=== PATIENT | female | born 1955 | race Caucasian/White ===

== ENCOUNTER 2018-05-26 09:00 | Outpatient (CLI) | payer OTHER ==
--- NOTE | 2018-05-26 17:03 | CT ---
NONCONTRAST LOW DOSE CT PULMONARY LUNG SCAN: 05/26/18 HISTORY: Tobacco abuse. Smoking history of 30+ years. COMPARISON: None available. FINDINGS: There is small pulmonary nodules measuring 4 mm or less at each lung base. There is a 4 mm pulmonary nodule lateral right lung base (image 42, series 3) with 3 mm pulmonary nodule anterior aspect right lower lobe (image 39, series 3) and a 4 mm pulmonary nodule posterolateral left lung base (image 48, series 3). No definite additional pulmonary nodule or mass is seen in the lungs bilaterally. There ar e mild peripheral blebs and emphysematous changes within the visualized upper lobes. No pleural effus ion is seen. Lack of intravenous contrast limits evaluation of the mediastinal structures and vasculature, but no definite enlarged lymph nodes are seen. Vascular calcifications are seen in the thoracic aorta. A subcentimeter hypodense is seen in the medial aspect of the right hepatic lobe which cannot be furt her characterized on this exam. Vascular calcifications are seen in the abdominal aorta. Increased density foci are seen within the g allbladder lumen which may represent gallbladder calculi and/or sludge. However, the gallbladder is i ncompletely imaged or evaluated on this exam. There is a sclerotic density seen within the T12 vertebral body demonstrating characteristics most co mpatible with small bone island. IMPRESSION: 1. LUNG RADS category 2, bibasilar subcentimeter pulmonary nodules. Continued annual screening w ith low dose CT scan in 12 months is recommended. 2. LUNG RADS category S, irregular appearance of the gallbladder with increased density within t he gallbladder lumen. This is incompletely evaluated or imaged on this exam. A right upper quadrant u ltrasound exam is recommended for further evaluation. POS: [facility]
== END 2018-05-26 09:01 | disposition home or self-care (01) ==
LOC: CT 09:00
PROVIDERS: ATTEND Urology
DX: F17.200 Nicotine dependence, unspecified, uncomplicated (principal); R91.8 Other nonspecific abnormal finding of lung field
CPT/HCPCS: G0297

== ENCOUNTER 2018-05-26 13:04 | Outpatient (CLI) | payer OTHER ==
--- NOTE | 2018-05-26 15:14 | BD ---
DEXA BONE SCAN: HISTORY: Age-related osteoporosis. COMPARISON: Comparison is made to previous exam from 12/29/2016. FINDINGS: DEXA bone scan was performed using a Hologic bone mineral density unit. Lumbar Spine: BMD (g/cm2) L1 0.81 T-Score: -1.6 Z-Score: -0.3 L2 0.85 T-Score: -1.6 Z-Score: -0.1 L3 0.90 T-Score: -1.7 Z-Score: -0.1 L4 0.82 T-Score: -2.2 Z-Score: -0.5 L1-L4 0.85 T-Score: -1.8 Z-Score: -0.3 When compared to previous bone scan from 2017. The bone mineral density has slightly improved having increased from 0.84 now measuring 0.85. Findings compatible with osteopenia. Left Hip: Femoral Neck: 0.62 T-Score: -2.0 Z-Score: -0.7 Total Femur: 0.83 T-Score: -0.9 Z-Score: 0.1 Findings compatible with osteopenia. The patient has the following FRAX score: Major osteoporotic fracture risk of 9.6% and hip fracture risk of 2.2%. Impression: Continued osteopenia. Bone mineral density has minimally improved compared to previous exam from 201 7. POS: [facility]
== END 2018-05-26 13:05 | disposition home or self-care (01) ==
LOC: BICMAMMO 13:04
PROVIDERS: ATTEND Internal Medicine
DX: Z12.31 Encounter for screening mammogram for malignant neoplasm of breast (principal); M85.89 Other specified disorders of bone density and structure, multiple sites; Z80.3 Family history of malignant neoplasm of breast
CPT/HCPCS: 77063; 77067; 77080

== ENCOUNTER 2019-11-17 10:04 | Outpatient (CLI) | payer OTHER ==
--- NOTE | 2019-11-17 10:55 | CT ---
CT chest noncontrast low-dose screening HISTORY: Tobacco abuse. COMPARISON: 05/26/2018. FINDINGS: Lungs remain hyperinflated with scattered areas of mild emphysematous bullae and mild paren chymal scarring. A 0.4 cm subpleural nodule at the lateral aspect of the right lower lobe is stable. A 0.3 cm nodule a t the left posterolateral costophrenic angle immediately under the pleural surface is also unchanged. Additional tiny subpleural nodules, none larger than 0.2 cm diameter, at the right posterior lung bas e in the anterolateral aspect of the left upper lobe are stable. No pleural fluid or pneumothorax. Lack of contrast limits evaluation of the soft tissues. Mild arterial calcification. No evidence of m ediastinal adenopathy. IMPRESSION : Tiny bilateral nodules are stable. Lung RADS category 2. Benign findings. Suggest routine follow-up. Emphysema. Atherosclerosis.
--- NOTE | 2019-11-17 11:03 | BD ---
EXAM: DEXA bone density examination HISTORY: 64-year-old postmenopausal female for screening COMPARISON: DEXA scan 2019 FINDINGS: L1--bone mineral density 0.805 g/sq cm; T score -1.7 L2--bone mineral density 0.829 g/sq cm; T score -1.8 L3--bone mineral density 0.853 g/sq cm; T score -2.1 L4--bone mineral density 0.777 g/sq cm; T score -2.6 Total L1-L4--bone mineral density 0.816 g/sq cm; T score -2.1 Change from comparison exam: -3.8%, statistically significant. Left femoral neck--bone mineral density0.593; T score -2.3 Total proximal left femur--bone mineral density 0.810; T score -1.1 Change from comparison exam: -2%, not statistically significant. WHO classification: Osteopenia. 10 year fracture risk Major osteoporotic fracture: 11% Hip fracture: 3% IMPRESSION: Osteopenia with fracture risk as above.
--- NOTE | 2019-11-17 11:57 | MMO ---
Bilateral MAMMO Bilat Screen [facility]. CLINICAL HISTORY: Patient is 64 years old and is seen for screening. The patient has no personal history of cancer. VIEWS: The views performed were: bilateral craniocaudal with tomosynthesis and bilateral mediolateral oblique with tomosynthesis. FILMS COMPARED: The present examination has been compared to prior imaging studies performed at [facility] on 12/24/2015, 12/30/2015, 12/29/2016 and 05/26/2018. This study has been interpreted with the assistance of computer-aided detection. MAMMOGRAM FINDINGS: The breasts are heterogeneously dense, which could obscure a lesion on mammography. There are stable benign appearing calcifications seen in both breasts. There are no suspicious masses, suspicious calcifications, or new areas of architectural distortion. IMPRESSION: THERE IS NO MAMMOGRAPHIC EVIDENCE OF MALIGNANCY. A ROUTINE FOLLOW-UP MAMMOGRAM IN 1 YEAR IS RECOMMENDED. THE RESULTS OF THIS EXAM WERE SENT TO THE PATIENT. ACR BI-RADS Category 2 - Benign finding MAMMOGRAPHY NOTE: 1. A negative mammogram report should not delay a biopsy if a dominant of clinically suspicious mass is present. 2. Approximately 10% to 15% of breast cancers are not detected by mammography. 3. Adenosis and dense breasts may obscure an underlying neoplasm. Reported by: HENRRY GUARDADO MD Electonically Signed: [id number]
== END 2019-11-17 10:05 | disposition home or self-care (01) ==
LOC: BICCT 10:04
PROVIDERS: ATTEND Internal Medicine Hematology & Oncology
DX: Z12.31 Encounter for screening mammogram for malignant neoplasm of breast (principal); Z13.820 Encounter for screening for osteoporosis; Z12.2 Encounter for screening for malignant neoplasm of respiratory organs; F17.210 Nicotine dependence, cigarettes, uncomplicated; Z78.0 Asymptomatic menopausal state; R91.8 Other nonspecific abnormal finding of lung field; J43.9 Emphysema, unspecified; I70.90 Unspecified atherosclerosis; M85.80 Other specified disorders of bone density and structure, unspecified site
CPT/HCPCS: 77063; 77067; 77080; G0297

== ENCOUNTER 2020-11-22 08:34 | Outpatient (CLI) | payer OTHER | END 2020-11-22 08:35 | disposition home or self-care (01) | LOC: BICCT 08:34 | PROVIDERS: ATTEND Internal Medicine Hematology & Oncology | DX: Z12.2 Encounter for screening for malignant neoplasm of respiratory organs (principal); F17.210 Nicotine dependence, cigarettes, uncomplicated; K76.9 Liver disease, unspecified; R91.8 Other nonspecific abnormal finding of lung field; R93.2 Abnormal findings on diagnostic imaging of liver and biliary tract | CPT/HCPCS: 71271 ==

== ENCOUNTER 2021-12-02 12:35 | Outpatient (CLI) | payer OTHER | END 2021-12-02 12:36 | disposition home or self-care (01) | LOC: BICCT 12:35 | PROVIDERS: ATTEND Internal Medicine Hematology & Oncology | DX: Z12.2 Encounter for screening for malignant neoplasm of respiratory organs (principal); F17.210 Nicotine dependence, cigarettes, uncomplicated | CPT/HCPCS: 71271 ==

== ENCOUNTER 2022-04-20 08:12 | Outpatient (CLI) | payer OTHER | END 2022-04-20 08:13 | disposition home or self-care (01) | LOC: BICMAMMO 08:12 | PROVIDERS: ATTEND Internal Medicine | DX: Z12.31 Encounter for screening mammogram for malignant neoplasm of breast (principal); Z13.820 Encounter for screening for osteoporosis; M81.0 Age-related osteoporosis without current pathological fracture; M85.851 Other specified disorders of bone density and structure, right thigh; Z78.0 Asymptomatic menopausal state; Z80.3 Family history of malignant neoplasm of breast | CPT/HCPCS: 77063; 77067; 77080 ==

== ENCOUNTER 2024-01-09 04:51 | Inpatient (IN) | payer OTHER ==
[2024-01-09] MEDS ORDERED: cefTRIAXone (ROCEPHIN) 2 GM VIAL ONE (05:41)
[2024-01-09] MEDS ORDERED: Acetaminophen 500 MG TAB ONE (05:41)
[2024-01-09 06:18] LABS: #Basophils Less than 0.03 10x3/uL (0.0-0.2); #Eosinophils Less than 0.03 10x3/uL (0.0-0.7); %Basophils 0.3 % (0.0-1.0); %Lymphocytes 4.8 % (21.0-51.0); %Monocytes 5.7 % (0.0-10.0); %Neutrophils 88.8 % (42.0-75.0); Hematocrit 33.6 % (36.0-47.0); Hemoglobin 12.1 g/dL (12.0-16.0); Mean Corpuscular Hemoglobin 43.1 pg (27.0-31.0); Mean Corpuscular Volume 119.6 fL (78.0-98.0); Mean Platelet Volume 9.5 fL (7.4-10.4); Platelet Count 207 10x3/uL (130-400); RBC Distribution Width 11.6 % (11.5-14.5); Red Blood Cell (RBC) Count 2.81 mill/uL (4.20-5.40)
[2024-01-09 06:30] LABS: ALT (SGPT) 7 U/L (8-55); AST (SGOT) 12 U/L (5-34); Albumin 3.4 g/dL (3.4-4.8); Alkaline Phosphatase 53 U/L (40-110); Anion Gap 12 mmol/L (10-20); BUN (Urea Nitrogen) 17 mg/dL (9.8-20.1); Bilirubin, Total 0.9 mg/dL (0.2-1.2); Calc. Creatinine Clearance 0 mL/min (70-130); Calcium 9.3 mg/dL (7.8-10.44); Carbon Dioxide 25 mmol/L (23-31); Chloride 102 mmol/L (98-107); Estimated GFR 81; Globulin 2.8 g/dL (2.4-3.5); Glucose 131 mg/dL (80-115); Potassium 3.4 mmol/L (3.5-5.1); Protein, Total 6.2 g/dL (5.8-8.1); Sodium 136 mmol/L (136-145)
[2024-01-09] MEDS ORDERED: EPINEPHrine 4 MG in Dextrose 5% in Water 250 ML IV SCH (08:30)
[2024-01-09] MEDS ORDERED: NOREPINEPHRINE 8 MG/250 ML-D5W 250 ML IVPB SCH ×2 (08:30→08:45)
[2024-01-09 08:56] LABS: Magnesium 1.6 mg/dL (1.6-2.6)
[2024-01-09] MEDS ORDERED: Vancomycin 1 GM in Premix 1 BAG IVPB SCH (09:00)
[2024-01-09 09:02] LABS: Troponin I 0.024 ng/mL (< 0.028)
[2024-01-09 10:32] LABS: Bacteria/HPF 2+ HPF (None Seen); Bilirubin Negative (Negative); Blood, Urine Negative (Negative); CAUTI Indications for Culture Dysuria,urgency,freq; Clarity Clear (Clear); Glucose, Urine (Dipstick) Normal (Negative); Ketone, Urine 10 mg/dL (Negative); Leukocyte 500 Leu/uL (Negative); Nitrite Negative (Negative); Protein, Urine (Dipstick) Negative (Neg-Trace); RBC/HPF 0-3 HPF (0-3); Specific Gravity, Urine 1.004 (1.002-1.036); Squamous Epithelial None Seen HPF (0-3); Urobilinogen Normal mg/dL (Less than 2); WBC/HPF 21-50 HPF (0-3); pH, Urine 5.5 (5.0-9.0)
[2024-01-09 10:34] LABS: Urine Culture Reflex Yes Yes
[2024-01-09] MEDS: Meropenem 1 GM in Sodium Chloride 0.9% 100 ML IVPB SCH ×2 (12:44→16:50)
[2024-01-09] MEDS: Vancomycin (BATCH) 1.25 GM in Premix 1 BAG IVPB SCH (12:45)
[2024-01-09] MEDS: Hydroxyurea 500 MG CAP PO SCH (13:17)
[2024-01-09] MEDS ORDERED: Meropenem 1 GM in Sodium Chloride 0.9% 100 ML IVPB SCH (14:00)
[2024-01-09] MEDS ORDERED: Acetaminophen 325 MG TAB PO PRN (14:13)
[2024-01-09] MEDS ORDERED: Bisacodyl 5 MG TAB PO PRN (14:13)
[2024-01-09] MEDS ORDERED: traMADol HCl 50 MG TAB PO PRN ×2 (14:13)
[2024-01-09] MEDS ORDERED: Ondansetron PF 4 MG/2 ML Vial IVP PRN (14:13)
[2024-01-09] MEDS: Nicotine 21 MG PATCH TD SCH (15:03)
[2024-01-09] MEDS: Enoxaparin 40 MG (0.4 mL) SYRINGE SC SCH (15:03)
[2024-01-09 15:11] VITALS: BMI 21.9
[2024-01-09] MEDS: FLU (Fluad Triv) TS24-25 (65UP)/MF59C/PF 45 MCG/0.5 ML Syringe IM ONE (15:22)
[2024-01-09] MEDS: Vancomycin HCl 750 MG in Sodium Chloride 0.9% 250 ML 250 ML IVPB SCH (22:21)
[2024-01-10] MEDS: Benzonatate 100 MG CAP PO PRN (00:15)
[2024-01-10 04:43] LABS: #Basophils Less than 0.03 10x3/uL (0.0-0.2); #Eosinophils Less than 0.03 10x3/uL (0.0-0.7); %Basophils 0.2 % (0.0-1.0); %Eosinophils 0.1 % (0.0-10.0); %Neutrophils 73.1 % (42.0-75.0); Hematocrit 34.1 % (36.0-47.0); Hemoglobin 11.7 g/dL (12.0-16.0); Mean Corpuscular HGB CONC 34.3 g/dL (32.0-36.0); Mean Corpuscular Hemoglobin 41.9 pg (27.0-31.0); Mean Corpuscular Volume 122.2 fL (78.0-98.0); Mean Platelet Volume 9.8 fL (7.4-10.4); Platelet Count 191 10x3/uL (130-400); RBC Distribution Width 11.9 % (11.5-14.5); Red Blood Cell (RBC) Count 2.79 mill/uL (4.20-5.40)
[2024-01-10 04:57] LABS: Anion Gap 13 mmol/L (10-20); BUN (Urea Nitrogen) 6 mg/dL (9.8-20.1); Calc. Creatinine Clearance 67 mL/min (70-130); Calcium 8.2 mg/dL (7.8-10.44); Carbon Dioxide 20 mmol/L (23-31); Chloride 110 mmol/L (98-107); Estimated GFR 95; Glucose 97 mg/dL (80-115); Potassium 3.1 mmol/L (3.5-5.1); Sodium 140 mmol/L (136-145)
[2024-01-10 05:08] LABS: Vancomycin, Random 16.1 ug/mL (See Comment)
[2024-01-10] MEDS: Potassium Chloride 20 MEQ TAB PO SCH (09:08)
[2024-01-10] MEDS: Enoxaparin 40 MG (0.4 mL) SYRINGE SC SCH (09:08)
[2024-01-10] MEDS: Hydroxyurea 500 MG CAP PO SCH (20:23)
[2024-01-11] MEDS: Loperamide HCl 2 MG CAP PO PRN (04:35)
[2024-01-11 05:44] LABS: #Basophils Less than 0.03 10x3/uL (0.0-0.2); #Eosinophils Less than 0.03 10x3/uL (0.0-0.7); %Basophils 0.2 % (0.0-1.0); %Eosinophils 0.4 % (0.0-10.0); %Lymphocytes 17.7 % (21.0-51.0); %Monocytes 7.5 % (0.0-10.0); %Neutrophils 73.8 % (42.0-75.0); Hematocrit 30.1 % (36.0-47.0); Hemoglobin 10.4 g/dL (12.0-16.0); Mean Corpuscular HGB CONC 34.6 g/dL (32.0-36.0); Mean Corpuscular Hemoglobin 42.3 pg (27.0-31.0); Mean Corpuscular Volume 122.4 fL (78.0-98.0); Mean Platelet Volume 9.8 fL (7.4-10.4); Platelet Count 152 10x3/uL (130-400); RBC Distribution Width 11.9 % (11.5-14.5); Red Blood Cell (RBC) Count 2.46 mill/uL (4.20-5.40)
[2024-01-11 05:46] LABS: BUN (Urea Nitrogen) 4 mg/dL (9.8-20.1); Calc. Creatinine Clearance 85 mL/min (70-130); Calcium 8.2 mg/dL (7.8-10.44); Carbon Dioxide 23 mmol/L (23-31); Estimated GFR 100; Glucose 80 mg/dL (80-115)
[2024-01-11 06:05] LABS: Chloride 109 mmol/L (98-107); Potassium 3.7 mmol/L (3.5-5.1); Sodium 139 mmol/L (136-145)
[2024-01-11 06:08] LABS: Anion Gap 12 mmol/L (10-20)
[2024-01-11] MEDS ORDERED: Nicotine 14 MG PATCH TD PRN (13:29)
[2024-01-11] MEDS ORDERED: Calcium Carbonate 500 MG ChewTAB PO PRN (13:36)
[2024-01-11] MEDS: Chlorhexidine Gluconate 15 ML UDCUP SSP SCH ×2 (14:13→20:43)
[2024-01-11] MEDS: Nicotine 14 MG PATCH TD SCH (14:13)
[2024-01-11] MEDS: Vancomycin 1 GM in Premix 1 BAG IVPB SCH (16:38)
[2024-01-11] MEDS: GUAIFENESIN SF SOLN 200 MG/10 ML UDCUP PO PRN (16:52)
[2024-01-11] MEDS: Cyanocobalamin (Vitamin B-12) 1,000 MCG TAB PO SCH (20:37)
[2024-01-11] MEDS: Multivit, Therapeutic 1 TAB PO SCH (20:37)
[2024-01-12] MEDS: cefTRIAXone\\ROCEPHIN 2 GM in Sodium Chloride 0.9% 100 ML IVPB SCH (05:15)
[2024-01-12 06:07] LABS: Anion Gap 12 mmol/L (10-20); BUN (Urea Nitrogen) 5 mg/dL (9.8-20.1); Calc. Creatinine Clearance 81 mL/min (70-130); Calcium 8.4 mg/dL (7.8-10.44); Carbon Dioxide 27 mmol/L (23-31); Chloride 105 mmol/L (98-107); Estimated GFR 99; Glucose 77 mg/dL (80-115); Magnesium 1.9 mg/dL (1.6-2.6); Potassium 3.5 mmol/L (3.5-5.1); Sodium 140 mmol/L (136-145); Vancomycin, Random 11.6 ug/mL (See Comment)
[2024-01-12 06:18] LABS: #Basophils Less than 0.03 10x3/uL (0.0-0.2); %Basophils 0.2 % (0.0-1.0); %Eosinophils 0.9 % (0.0-10.0); %Lymphocytes 25.2 % (21.0-51.0); %Monocytes 7.4 % (0.0-10.0); %Neutrophils 65.9 % (42.0-75.0); Hematocrit 30.9 % (36.0-47.0); Hemoglobin 10.9 g/dL (12.0-16.0); Mean Corpuscular HGB CONC 35.3 g/dL (32.0-36.0); Mean Corpuscular Hemoglobin 41.3 pg (27.0-31.0); Mean Platelet Volume 10.1 fL (7.4-10.4); Platelet Count 174 10x3/uL (130-400); RBC Distribution Width 11.4 % (11.5-14.5); Red Blood Cell (RBC) Count 2.64 mill/uL (4.20-5.40)
[2024-01-12] MEDS: Magnesium 2 GM/50 ML(in water) 2 GM in Premix 1 BAG IVPB SCH (08:31)
[2024-01-12] MEDS: Potassium Bicarbonate/Cit Ac 20 MEQ TAB PO SCH (08:31)
[2024-01-12] MEDS: Hydroxyurea 500 MG CAP PO SCH (08:40)
[2024-01-12 15:25] VITALS: BP 137/75; TEMP 98.1
[2024-01-12] MEDS ORDERED: Hydroxyurea 500 MG CAP PO SCH (21:00)
== END 2024-01-12 15:26 | disposition home or self-care (01) | DRG 871 ==
LOC: ERS 04:51 → 2NO 10:23 → ERHOLD 10:23 → 2NO 14:15 → T4-A 01-10 23:07
PROVIDERS: ADMIT Internal Medicine; ATTEND Internal Medicine
DX: A41.9 Sepsis, unspecified organism (principal); R65.21 Severe sepsis with septic shock; N39.0 Urinary tract infection, site not specified; K52.1 Toxic gastroenteritis and colitis; E83.42 Hypomagnesemia; D53.9 Nutritional anemia, unspecified; F17.210 Nicotine dependence, cigarettes, uncomplicated; D75.1 Secondary polycythemia; E87.6 Hypokalemia; Z66 Do not resuscitate; K04.7 Periapical abscess without sinus; T36.95XA Adverse effect of unspecified systemic antibiotic, initial encounter; Z79.899 Other long term (current) drug therapy; Z71.6 Tobacco abuse counseling; Z88.8 Allergy status to other drugs, medicaments and biological substances
CPT/HCPCS: 36415; 51701; 71045; 74176; 80048; 80053; 80202; 81001; 83605; 83735; 84484; 85025; 87040; 87081; 87086; 87324; 87428; 87449; 93005; 96361; 96365; 96375; J0171; J0696; J1650; J2185; J3370; J3370-JW; J3475; J7050; J7070

== ENCOUNTER 2024-02-01 09:08 | Outpatient (CLI) | payer OTHER | END 2024-02-01 09:09 | disposition home or self-care (01) | LOC: BICCT 09:08 | PROVIDERS: ATTEND Internal Medicine Hematology & Oncology | DX: Z12.2 Encounter for screening for malignant neoplasm of respiratory organs (principal); F17.210 Nicotine dependence, cigarettes, uncomplicated | CPT/HCPCS: 71271 ==

== ENCOUNTER 2025-02-01 08:20 | Outpatient (CLI) | payer OTHER | END 2025-02-01 08:21 | disposition home or self-care (01) | LOC: BICCT 08:20 → CT 08:21 | PROVIDERS: ATTEND Internal Medicine | DX: Z12.2 Encounter for screening for malignant neoplasm of respiratory organs (principal); F17.210 Nicotine dependence, cigarettes, uncomplicated; Z80.1 Family history of malignant neoplasm of trachea, bronchus and lung | CPT/HCPCS: 71271 ==